=== PATIENT | female | born 1995 | race Caucasian/White ===

== ENCOUNTER 2020-01-21 08:10 | Outpatient (REF) | payer MEDICAID, SELFPAY | END 2020-01-21 08:11 | disposition home or self-care (01) | LOC: HO.LAB 08:10 | PROVIDERS: Visit Provider Internal Medicine | DX: Z20.828 Contact with and (suspected) exposure to other viral communicable diseases (principal) | CPT/HCPCS: C9803; U0003 ==

== ENCOUNTER 2020-02-15 13:46 | Outpatient (REF) | payer MEDICAID, SELFPAY ==
--- NOTE | 2020-02-15 13:54 | XR_ITS ---
EXAMINATION: XR SHOULDER, RIGHT CLINICAL INFORMATION: Right shoulder pain. COMPARISON: None TECHNIQUE: Three views of the right shoulder. FINDINGS: The bones and soft tissues are normal. No fracture. Glenohumeral and acromioclavicular alignment is anatomic with normal joint space. No abnormal soft tissue calcifications. XR/XR shoulder RT min 2V IMPRESSION: Unremarkable right shoulder.
== END 2020-02-15 13:47 | disposition home or self-care (01) ==
LOC: HO.HOSX 13:46
PROVIDERS: Visit Provider Orthopaedic Surgery
DX: M25.511 Pain in right shoulder (principal)
CPT/HCPCS: 73030; 99202

== ENCOUNTER 2020-03-15 15:45 | Outpatient (REF) | payer MEDICAID, SELFPAY ==
--- NOTE | 2020-03-15 | US_ITS ---
EXAMINATION: US PELVIS, COMPLETE CLINICAL INFORMATION: Excessive, frequent an irregular menses; the last menstrual period was on 02/21/2020; there is a history of prior left oophorectomy. COMPARISON: None TECHNIQUE: Transabdominal and transvaginal imaging was performed. FINDINGS: The uterus is of normal size and echogenicity measuring 9.6 x 5.6 x 5.5 cm. The uterus is retroverted and retroflexed. A regular homogeneous endometrium is identified measuring 1.2 cm. The right ovary is normal in size and echotexture, measuring 4.6 x 3.2 x 3.2 cm for a volume of 24.1 mL. The right ovary contains a 3.3 x 2.4 x 2.9 cm simple cyst. The left ovary is surgically absent. There is no pelvic free fluid. No adnexal mass is seen. There is mildly prominent bilateral adnexal vasculature US/US pelvic complete IMPRESSION: 1. A 3.3 cm simple right ovarian cyst is seen. 2. The left ovary is surgically absent. 3. There is mildly prominent bilateral adnexal vasculature, which can be associated with pelvic congestion.
--- NOTE | 2020-03-15 | US_ITS ---
EXAMINATION: US PELVIS, COMPLETE CLINICAL INFORMATION: Excessive, frequent an irregular menses; the last menstrual period was on 02/21/2020; there is a history of prior left oophorectomy. COMPARISON: None TECHNIQUE: Transabdominal and transvaginal imaging was performed. FINDINGS: The uterus is of normal size and echogenicity measuring 9.6 x 5.6 x 5.5 cm. The uterus is retroverted and retroflexed. A regular homogeneous endometrium is identified measuring 1.2 cm. The right ovary is normal in size and echotexture, measuring 4.6 x 3.2 x 3.2 cm for a volume of 24.1 mL. The right ovary contains a 3.3 x 2.4 x 2.9 cm simple cyst. The left ovary is surgically absent. There is no pelvic free fluid. No adnexal mass is seen. There is mildly prominent bilateral adnexal vasculature US/US transvaginal IMPRESSION: 1. A 3.3 cm simple right ovarian cyst is seen. 2. The left ovary is surgically absent. 3. There is mildly prominent bilateral adnexal vasculature, which can be associated with pelvic congestion.
== END 2020-03-15 15:46 | disposition home or self-care (01) ==
LOC: HO.US 15:45
PROVIDERS: Visit Provider Advanced Practice Midwife
DX: N92.1 Excessive and frequent menstruation with irregular cycle (principal)
CPT/HCPCS: 76830; 76856